=== PATIENT | male | born 1995 | race Caucasian/White ===

== ENCOUNTER → 2018-05-09 | Outpatient (CLI) | payer OTHER | LOC: BMCIMAGING 14:08 | PROVIDERS: ATTEND Orthopaedic Surgery Hand Surgery | DX: S62.395D Other fracture of fourth metacarpal bone, left hand, subsequent encounter for fracture with routine healing (principal) ==

== ENCOUNTER 2018-11-02 16:22 | Emergency (ER) | payer OTHER ==
[2018-11-02] MEDS ORDERED: NS 1,000 ML IV ONE ×2 (16:35→16:45)
[2018-11-02 16:48] LABS: PLATELET COUNT 409 10^3/uL (150-400)
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
[2018-11-02 18:57] VITALS: BP 124/86
== END 2018-11-02 19:35 | disposition home or self-care (01) ==
LOC: EDUNIT#
DX: R56.9 Unspecified convulsions (principal); E86.0 Dehydration
CPT/HCPCS: 82435-PO; 82565-PO; 82947-PO; 84132-PO; 84295-PO; 84520-PO; 85014-ER; G0480